=== PATIENT | male | born 1950 | race Caucasian/White ===

== ENCOUNTER 2021-10-03 16:45 | Inpatient (IN) | payer OTHER ==
[~2021-10-03] VITALS: Ht 177.8 cm; Wt 78.0 kg
--- NOTE | ~2021-10-03 | PROC ---
[address] [address] PROCEDURE REPORT Name: SALINA MCCOY Room: [address] IN M.R.#: [id number] Admission: 10/03/21 Attend Phys: Alexandra Paiz MD Discharge: Date of : 54 Report #: [id number] THIS REPORT FOR: cc: [facility] - Clinic physician unknown FAM - Clinic physician unknown [facility],Medical Records Staff ~ For GI report, please see the Provation report in Perceptive 7 content. By: [id number] Records Staff FRANSICO /CHRISTO
--- NOTE | ~2021-10-03 | PROC ---
[facility] [address] [place] [address] PROCEDURE REPORT Name: SALINA MCCOY Room: [address] IN M.R.#: [id number] Admission: 10/03/21 Attend Phys: Alexandra Paiz MD Discharge: Date of : 54 Report #: [id number] THIS REPORT FOR: cc: [facility] - Clinic physician unknown FAM - Clinic physician unknown [facility],Medical Records Staff ~ For GI report, please see the Provation report in Perceptive 7 content. By: [id number] Records Staff FRANSICO /CHRISTO
[2021-10-03 16:53] VITALS: BP 120/51
[2021-10-03 17:30] LABS: HEMATOCRIT 27.6 % (42.0-52.0); HEMOGLOBIN 9.1 gm/dL (14.0-18.0); MCH 39.4 pg (26.0-34.0); MCV 119.6 fL (80.0-100.0); MPV 8.5 fl. (7.2-11.1); NUCLEATED RBCS 1 /100WBC; PLATELET COUNT* 200 thou/uL (150-400); RBC 2.31 mil/uL (4.50-6.00); RDW-CV 16.9 % (10.5-14.5); WBC 15.5 thou/uL (4.0-11.0)
[2021-10-03 17:38] LABS: APTT 23.9 Seconds (25.0-31.3); INR 1.1; PROTIME 11.4 Seconds (9.20-11.50)
[2021-10-03 17:51] LABS: CALCIUM 8.3 mg/dL (8.5-10.1); CREATININE 1.6 mg/dL (0.6-1.3)
[2021-10-03 17:59] LABS: ABSOLUTE EOSINOPHILS 0.2 thou/uL (0.0-0.7); ABSOLUTE LYMPHOCYTES 0.9 thou/uL (0.8-5.3); ABSOLUTE MONOCYTES 0.5 thou/uL (0.0-1.2); PLATELET ESTIMATE ADEQUATE
[2021-10-03 18:00] LABS: ANISOCYTOSIS 2+; MACROCYTES 2+
[2021-10-03 18:02] LABS: ALBUMIN 2.3 g/dL (3.4-5.0); TOTAL BILIRUBIN 1.7 mg/dL (<0.1-1.0); TOTAL PROTEIN 7.3 g/dL (6.4-8.2)
[2021-10-03 19:06] LABS: URINE BILIRUBIN NEGATIVE (Negative); URINE BLOOD NEGATIVE (Negative); URINE CLARITY CLEAR; URINE COLOR YELLOW; URINE GLUCOSE-RANDOM NEGATIVE (Negative); URINE KETONES NEGATIVE (Negative); URINE LEUKOCYTES-REFLEX NEGATIVE (Negative); URINE NITRITE-REFLEX NEGATIVE (Negative); URINE PROTEIN NEGATIVE (Negative); URINE SPECIFIC GRAVITY <= 1.005 (1.005-1.030); URINE UROBILINOGEN 0.2 E.U./dl (0.2-1.0)
[2021-10-03 22:00] VITALS: BP 119/65
[2021-10-04] VITALS (7 sets, daily range): BP systolic 115–145; BP diastolic 50–105
[2021-10-04 01:59] LABS: HEMATOCRIT 23.6 % (42.0-52.0); HEMOGLOBIN 7.8 gm/dL (14.0-18.0); MCH 39.7 pg (26.0-34.0); MCV 120.2 fL (80.0-100.0); MPV 7.9 fl. (7.2-11.1); RBC 1.96 mil/uL (4.50-6.00); RDW-CV 16.7 % (10.5-14.5); WBC 10.4 thou/uL (4.0-11.0)
[2021-10-04 02:15] LABS: CALCIUM 7.4 mg/dL (8.5-10.1); CREATININE 1.1 mg/dL (0.6-1.3); POTASSIUM 3.1 mmol/L (3.5-5.1)
[2021-10-04 02:19] LABS: ALBUMIN 1.9 g/dL (3.4-5.0); MAGNESIUM 1.7 mg/dL (1.8-2.4); TOTAL BILIRUBIN 1.3 mg/dL (<0.1-1.0); TOTAL PROTEIN 6.1 g/dL (6.4-8.2)
--- NOTE | 2021-10-04 15:20 | EKG ---
[place] [address] ELECTROCARDIOGRAM REPORT Name: MCCOY,SALINA Reji Room: [place] [address] ADM IN [facility]#: [id number] Admission: 10/03/21 Attend Phys: Alexandra Paiz, Discharge: Date of : 54 Date of Service: 10/03/21 1743 Report #: [id number] THIS REPORT FOR: //name// [facility] ED Test Date: 2021-10-03 Test Time: 17:43:45 Pat Name: SALINA MCCOY Department: Room: [facility] Gender: M Pen Ruler Operator: ALAINA : 1950 Requested By: Cheo Rm Order Number: [id number] MD: Steven Jones Measurements Intervals [place] Rate: 100 P: 67 NE: 205 QRS: 51 QRSD: 82 T: 46 QT: 353 QTc: 456 Interpretive Statements Sinus tachycardia Borderline T abnormalities, anterior leads Baseline wander in lead(s) V2 No previous ECG available for comparison Electronically Signed On 10-04-2021 15:20:36 ASSISTIVE TECHNOLOGY SPECIALIST by Steven Jones [email or web address] <ELECTRONICALLY SIGNED> By: Steven Jones MD, FACC 10/04/21 1520 1743 1743 Steven Jones MD, FAC /EPI
--- NOTE | 2021-10-04 17:54 | NUR ---
PT HAD SPILLED FOOD AND DRINK IN HIS BED, PT WAS WIPED DOWN, GIVEN FRESH BED LINENS AND GOWN. PT SITTING UP IN CLEAN BED,WATCHING TV, CALL LIGHT WITHIN REACH.
[2021-10-04 20:53] LABS: HEMATOCRIT 22.5 % (42.0-52.0); HEMOGLOBIN 7.4 gm/dL (14.0-18.0)
[2021-10-04 21:11] LABS: MAGNESIUM 2.4 mg/dL (1.8-2.4); POTASSIUM 3.4 mmol/L (3.5-5.1)
[2021-10-05] VITALS: BP 116/69
[2021-10-05] MEDS ORDERED: BENADRYL25 MG PO (01:33)
[2021-10-05 04:00] VITALS: BP 139/76
[2021-10-05 08:00] VITALS: BP 103/63
[2021-10-05 10:25] LABS: CHOLESTEROL 114 mg/dL (<200); HDL CHOLESTEROL 16 mg/dL (>40); LDL CHOLESTEROL 71 mg/dL (<100); TC:HDL 7.1 Ratio (Not establshd); TRIGLYCERIDE 136 mg/dL (<150); VLDL 27 mg/dL (<40)
[2021-10-05 10:26] LABS: SERUM ASSESSMENT Moderate Lipemia
[2021-10-05 12:00] VITALS: BP 109/84
[2021-10-05 13:58] LABS: ABSOLUTE EOSINOPHILS 0.1 thou/uL (0.0-0.7); ABSOLUTE MONOCYTES 0.5 thou/uL (0.0-1.2); ABSOLUTE NEUTROPHILS 8.3 thou/uL (1.6-8.1); BASOPHILS 0.3 %; HEMATOCRIT 24.3 % (42.0-52.0); HEMOGLOBIN 8.1 gm/dL (14.0-18.0); LYMPHOCYTES 18.2 %; MCH 40.7 pg (26.0-34.0); MCHC 33.4 g/dL (28.0-37.0); MCV 121.8 fL (80.0-100.0); MONOCYTES 4.5 %; MPV 8.8 fl. (7.2-11.1); NUCLEATED RBCS 1 /100WBC; PLATELET COUNT* 189 thou/uL (150-400); RBC 1.99 mil/uL (4.50-6.00); RDW-CV 16.7 % (10.5-14.5)
[2021-10-05 14:08] LABS: ALBUMIN 2.1 g/dL (3.4-5.0); CALCIUM 7.8 mg/dL (8.5-10.1); CREATININE 1.3 mg/dL (0.6-1.3); POTASSIUM 3.7 mmol/L (3.5-5.1); TOTAL PROTEIN 6.6 g/dL (6.4-8.2)
[2021-10-05 16:00] VITALS: BP 156/81
--- NOTE | 2021-10-05 18:59 | NUR ---
RECEIVED REPORT. ASSUMED CARE OF PT AROUND 0730. AM ASSESSMENT AND VITALS COMPLETED CHARTED. COUNTERPERSON IN PLACE. MEDS PER EMAR. ATIVAN PRN. INCONTINENT OF BOWEL AND BLADDER MULTIPLE TIMES THIS SHIFT. DRESSING TO RIGHT HIP CDI. DENIED PAIN THIS SHIFT. FALL PRECAUTIONS IN PLACE. CALL LIGHT WITHIN REACH. HOURY ROUNDING PERFORMED.
[2021-10-05 20:00] VITALS: BP 107/63
[2021-10-06] VITALS: BP 124/75
[2021-10-06 04:00] VITALS: BP 136/78
[2021-10-06 07:01] LABS: ABSOLUTE EOSINOPHILS 0.2 thou/uL (0.0-0.7); ABSOLUTE LYMPHOCYTES 2.9 thou/uL (0.8-5.3); ABSOLUTE MONOCYTES 0.9 thou/uL (0.0-1.2); ABSOLUTE NEUTROPHILS 8.7 thou/uL (1.6-8.1); BASOPHILS 0.1 %; EOSINOPHILS 1.3 %; HEMATOCRIT 23.6 % (42.0-52.0); HEMOGLOBIN 7.7 gm/dL (14.0-18.0); LYMPHOCYTES 22.6 %; MCH 39.1 pg (26.0-34.0); MCHC 32.7 g/dL (28.0-37.0); MCV 119.4 fL (80.0-100.0); MONOCYTES 7.4 %; MPV 7.9 fl. (7.2-11.1); NUCLEATED RBCS 1 /100WBC; PLATELET COUNT* 151 thou/uL (150-400); POLYS 68.6 %; RBC 1.97 mil/uL (4.50-6.00); RDW-CV 16.8 % (10.5-14.5); WBC 12.7 thou/uL (4.0-11.0)
[2021-10-06 07:16] LABS: PREALBUMIN 12.8 mg/dL (18.0-35.7)
[2021-10-06 07:18] LABS: CALCIUM 7.9 mg/dL (8.5-10.1); CREATININE 1.1 mg/dL (0.6-1.3); POTASSIUM 3.8 mmol/L (3.5-5.1); TOTAL BILIRUBIN 0.9 mg/dL (<0.1-1.0); TOTAL PROTEIN 6.2 g/dL (6.4-8.2)
[2021-10-06 09:40] VITALS: BP 130/82
--- NOTE | 2021-10-06 14:17 | NUR ---
CM ASSESSMENT: PT A&O, AND NORMALLY INDEPENDENT WITH ADL'S. PT RESIDES AT HOME ALONE. PT USES WALKER AND HOVER-ROUND FOR MOBILITY. PT HAS 0 HX OF HH OR SNF. PT INFORMS THAT HIS NEIGHBORS ASSIST HIM NEEDED. PT ADMITTED FOR ETOH ABUSE. CM DISCUSSED THIS WITH THE PT AND OFFERED PT RESOURCES. PT DECLINED. CM ALSO DISCUSSED SNF PLACEMENT WITH THE PT PT DECLINED DESPITE EDUCATION AND ENCOURAGEMENT. PT MAY BENEFIT FROM HH AT D/C. CM WILL REMAIN AVAILABLE TO ASSIST AND FOLLOW NEEDED.
--- NOTE | 2021-10-06 16:08 | CON ---
[address] [address] CONSULTATION Name: SALINA MCCOY Room: [address] IN M.R.#: [id number] Admission: 10/03/21 Attend Phys: Alexandra Paiz MD Discharge: Date of : 54 Report #: [id number] THIS REPORT FOR: cc: [facility] - Clinic physician unknown [facility] - Clinic physician unknown Ramone Mcclain DO ~ DATE OF CONSULTATION: 10/06/2021 The patient does not have a PCP. Please note at the time of this dictation, the patient was seen and physically examined by myself. REASON FOR CONSULTATION: Melanotic stool and acute anemia. HISTORY OF PRESENT ILLNESS: This 71-year-old male who presented to the Emergency Room after apparently Police were called to look on him to see what was going on regarding the situation. Apparently, when they arrived at his home, they found him that he had fallen. He was feeling very weak and unable to move. At that time, the patient denied any fever or chills. He said he had fell onto his back and he does not remember if he passed out or not. He states for the last 2 months, he has been noticing black stools. He does take an occasional ibuprofen, but nothing on a regular basis. This is more for just generalized aches and pains. He also described that he had some nausea and vomiting, but denied any bright red blood or any coffee-ground emesis noted with this. He does state his bowels move daily, soft and formed. He denies any abdominal discomfort at this time. He does have chronic back pain however. The patient has never had an EGD or a colonoscopy done before. He denies any upper gastrointestinal symptoms at this time of any difficulty swallowing or acid reflux. PAST MEDICAL HISTORY: Chronic back pain. PAST SURGICAL HISTORY: None. FAMILY HISTORY: Noncontributory. SOCIAL HISTORY: He lives alone. He drinks a 6-pack daily and he smokes a pack and half daily. REVIEW OF SYSTEMS: Twelve-point review of systems is essentially negative except what is mentioned in the HPI. PHYSICAL EXAMINATION: VITAL SIGNS: Temperature 36.3, pulse 98, respirations are 20, blood pressure 136/78. HEART: [place] [address] CONSULTATION Name: SALINA MCCOY Room: [address] IN [facility]#: [id number] Admission: 10/03/21 Attend Phys: Alexandra Paiz MD Discharge: Date of : 54 Report #: [id number] LUNGS: Diminished. ABDOMEN: Soft, positive bowel sounds in all 4 quadrants with no masses or tenderness noted. LABORATORY DATA: On admission, he was 8.1, he is now 7.7. Platelets are 151. White count is 12.7. His BUN on admission was 24, he is now 18. His GFR is 66, total bilirubin 0.9, alkaline phosphatase 209, ALT 29, AST is 72. CRP is 28.4. ESR is 94. CT scan of the abdomen, hepatic steatosis. IMPRESSION: 1. Acute anemia, likely on chronic. 2. Melanotic stool. 3. Elevated liver function test. 4. Hepatic steatosis. 5. Leukocytosis. 6. Alcohol abuse, 6-pack daily. PLAN: 1. EGD today. 2. Continue Protonix b.i.d. 3. We will check GGTP, acute hepatitis panel, an AFP 4. Ultrasound with Dopplers to further evaluate his liver. 5. Further recommendations to be made after Dr. Mcclain sees the patient and performs an EGD. Thank you for allowing us to participate in this patient's care. Please do not hesitate to call with any questions regarding this consult. <ELECTRONICALLY SIGNED> By: Ramone Mcclain DO 10/06/21 1608 0842 [id number] Mcclain DO /nt
[2021-10-06 16:48] VITALS: BP 121/79
--- NOTE | 2021-10-06 17:02 | 2DMMODE ---
[place] [address] 2 D/M-MODE ECHOCARDIOGRAM Name: SALINA MCCOY Room: [address] IN Daniela.#: [id number] Admission: 10/03/21 Attend Phys: Alexandra Paiz, Discharge: Date of : 54 Date of Service: 10/06/21 1702 Report #: [id number] THIS REPORT FOR: cc: [facility] - Clinic physician unknown [facility] - Clinic physician unknown Ross Anaya MD [facility] ~ APPROVED REPORT Study performed: 10/06/2021 14:02:30 EXAM: Comprehensive 2D, Doppler, and color-flow Echocardiogram Patient Location: In-Patient Room #: [facility] Status: routine BSA: 2.00 HR: 89 bpm BP: 136/78 mmHg Rhythm: NSR Other Information Study Quality: Adequate Indications Congestive Heart Failure 2D Dimensions IVSd: 8.50 (7-11mm) LVOT Diam: 20.12 (18-24mm) LVDd: 43.40 mm PWd: 9.67 (7-11mm) Ascending Ao: 32.57 (22-36mm) LVDs: 27.21 (25-40mm) Aortic Root: 32.66 mm Volumes Left Atrial Volume (Systole) LA ESV Index: 17.10 mL/m2 Aortic Valve AoV Peak Suraj.: 1.01 m/s AO Peak Gr.: 4.12 mmHg LVOT Max P.55 mmHg AO Mean Gr.: 2.45 mmHg LVOT Mean P.91 mmHg LVOT Max V: 0.94 m/s AO V2 VTI: 20.46 cm LVOT Mean V: 0.64 m/s GUERA (VTI): 3.44 cm2 LVOT V1 VTI: 22.10 [place] [address] 2 D/M-MODE ECHOCARDIOGRAM Name: SALINA MCCOY Room: [address] IN ..#: [id number] Admission: 10/03/21 Attend Phys: Alexandra Paiz, Discharge: Date of : 54 Date of Service: 10/06/21 1702 Report #: [id number] Mitral Valve E/A Ratio: 0.75 MV Decel. Time: 129.63 ms MV E Max Suraj.: 0.69 m/s MV PHT: 37.59 ms MVA (PHT): 5.85 cm2 TDI E/Lateral E': 6.90 E/Medial E': 9.86 Medial E' Suraj.: 0.07 m/s Lateral E' Suraj.: 0.10 m/s Pulmonary Valve PV Peak Suraj.: 0.80 m/s PV Peak Gr.: 2.55 mmHg Left Ventricle The left ventricle is normal size. There is normal LV segmental wall motion. There is normal left ventricular wall thickness. Left ventricular systolic function is normal. The left ventricular ejection fraction is within the normal range. LVEF is 65-70%. Grade I - abnormal relaxation pattern. Right Ventricle The right ventricle is normal size. The right ventricular systolic function is normal. Atria The left atrium size is normal. The right atrium size is normal. Aortic Valve The aortic valve is normal in structure. No aortic regurgitation is present. There is no aortic valvular stenosis. Mitral Valve The mitral valve is normal in structure. There is no mitral valve regurgitation noted. No evidence of mitral valve stenosis. Tricuspid Valve The tricuspid valve is normal in structure. There is no tricuspid valve regurgitation noted. Pulmonic Valve Pulmonic valve is not well visualized. There is no [place]mon[place] [address] 2 D/M-MODE ECHOCARDIOGRAM Name: SALINA MCCOY Room: [address]#: [id number] Admission: 10/03/21 Attend Phys: Alexandra Paiz, Discharge: Date of : 54 Date of Service: 10/06/21 1702 Report #: [id number] Great Vessels The aortic root is normal in size. IVC is not well visualized. Pericardium There is no pericardial effusion. <Conclusion> Left ventricular systolic function is normal. The left ventricular ejection fraction is within the normal range. <ELECTRONICALLY SIGNED> By: Ross Anaya MD, FACC 10/06/211701 01 01 Ross Anaya MD, FAC /INF
[2021-10-06 20:00] VITALS: BP 93/54
[2021-10-07] VITALS (7 sets, daily range): BP systolic 93–157; BP diastolic 61–96
[2021-10-07 04:29] LABS: HEMATOCRIT 21.2 % (42.0-52.0); MCH 39.2 pg (26.0-34.0); MCHC 32.1 g/dL (28.0-37.0); MCV 122.1 fL (80.0-100.0); NUCLEATED RBCS 0 /100WBC; PLATELET COUNT* 134 thou/uL (150-400); RBC 1.74 mil/uL (4.50-6.00); WBC 12.1 thou/uL (4.0-11.0)
[2021-10-07 05:08] LABS: ALBUMIN 1.8 g/dL (3.4-5.0); CREATININE 0.9 mg/dL (0.6-1.3); POTASSIUM 3.4 mmol/L (3.5-5.1); TOTAL BILIRUBIN 0.8 mg/dL (<0.1-1.0); TOTAL PROTEIN 5.7 g/dL (6.4-8.2)
[2021-10-07 05:09] LABS: HEMOGLOBIN 6.8 gm/dL (14.0-18.0)
[2021-10-07 06:40] LABS: ABSOLUTE LYMPHOCYTES 2.5 thou/uL (0.8-5.3); ABSOLUTE MONOCYTES 1.1 thou/uL (0.0-1.2); ABSOLUTE NEUTROPHILS 8.5 thou/uL (1.6-8.1); PROMYELOCYTES 2 %
[2021-10-07 06:42] LABS: ANISOCYTOSIS 2+
[2021-10-07 06:43] LABS: HYPOCHROMASIA 2+
[2021-10-07 06:44] LABS: POLYCHROMASIA 1+
[2021-10-07 06:47] LABS: PLATELET ESTIMATE ADEQUATE
--- NOTE | 2021-10-07 07:11 | NUR ---
CALL FROM BLOOD BANK, BLOOD SOPHIE. REPORT GIVEN TO YEISON ELAM. BLOOD ADMINISTRATION ENDORSED. BLOOD CONSENT SIGNED.
[2021-10-07 09:08] LABS: HEPATITIS B SURFACE AG Negative (Negative)
[2021-10-07 12:07] LABS: GLOBULIN TOTAL 3.2 g/dL (2.2-3.9); M-SPIKE 0.6 g/dL (Not Observed)
--- NOTE | 2021-10-07 16:13 | NUR ---
PLAN OF CARE: PHYSICIAN INFORMS THAT THE PT IS NOT MEDICALLY STABLE AT THIS TIME. GI CONSULTED. MRI PENDING. PT MAY BENEFIT FROM HH AT D/C. PT/OT EVALS WILL BE NEEDED TO DETERMINE CM D/C PLANNING NEEDS FOR D/C TO SNF VS HOME WITH HH. CM WILL REMAIN AVAILABLE TO ASSIST AND FOLLOW NEEDED.
--- NOTE | 2021-10-07 18:43 | NUR ---
ASSUMED CARE AT 0730. PT IS ALERT ANAD ORIENTED. ASSESSMENT DONE. PT IS INCONTINENT OF BLADDER. PT IS PREPING FOR COLONOSCOPY IN THE AM. WILL CONTINUE TO CARE FOR PT.
[2021-10-08 01:03] VITALS: BP 116/82
[2021-10-08 04:43] LABS: CALCIUM 8.2 mg/dL (8.5-10.1)
[2021-10-08 04:49] LABS: POTASSIUM 2.9 mmol/L (3.5-5.1)
[2021-10-08 05:04] LABS: HEMATOCRIT 26.2 % (42.0-52.0); HEMOGLOBIN 8.5 gm/dL (14.0-18.0); MCH 35.8 pg (26.0-34.0); MCHC 32.5 g/dL (28.0-37.0); MPV 8.2 fl. (7.2-11.1); NUCLEATED RBCS 1 /100WBC; PLATELET COUNT* 148 thou/uL (150-400); RBC 2.38 mil/uL (4.50-6.00); RDW-CV 28.7 % (10.5-14.5); WBC 11.2 thou/uL (4.0-11.0)
[2021-10-08 05:10] LABS: MCV 110.3 fL (80.0-100.0)
[2021-10-08 05:25] VITALS: BP 133/77
--- NOTE | 2021-10-08 05:44 | NUR ---
PT ALERT BUT SLEPT ALL SHIFT. K+ WAS 2.9 THIS MORNING, IV K+ STARTED PER PROTOCOL. HE IS Q2 TURN, INCONTINENT OF URINE. HAS BEEN NPO SINCE MIDNIGHT. RECEIVED DULCOLAX THIS MORNING WITH WATER PER DR JIMENEZ ORDERS FOR COLONOSCOPY LATER TODAY. WILL CONTINUE TO MONITOR.
[2021-10-08 06:39] LABS: ABSOLUTE EOSINOPHILS 0.1 thou/uL (0.0-0.7); ABSOLUTE LYMPHOCYTES 2.2 thou/uL (0.8-5.3); ABSOLUTE MONOCYTES 0.8 thou/uL (0.0-1.2); ABSOLUTE NEUTROPHILS 8.1 thou/uL (1.6-8.1); METAMYELOCYTES 8 %
[2021-10-08 06:42] LABS: ANISOCYTOSIS 2+; PLATELET ESTIMATE ADEQUATE; POIKILOCYTOSIS 1+
[2021-10-08 08:00] VITALS: BP 111/64
[2021-10-08 16:00] VITALS: BP 149/65
[2021-10-08 20:20] VITALS: BP 139/61
[2021-10-09 01:04] VITALS: BP 154/78
[2021-10-09 04:00] VITALS: BP 160/71
--- NOTE | 2021-10-09 06:59 | NUR ---
Oriented x 3 but forgetful. He is SR to ST with 1 degree on the monitor. Hehas used the urinal to void. viatls stable. He has slept well.
[2021-10-09 09:00] VITALS: BP 115/92; BP 93/65
--- NOTE | 2021-10-09 11:08 | PATH ---
[facility] [address] [place] [address] PATHOLOGY RPT PROCEDURE Name: SALINA HENDRIX Room: [address] IN M.R.#: [id number] Admission: 10/03/21 Date of : 54 Discharge: Report #: [id number] Path Case #: [id number] LCA Accession Number: [id number] . 01 Material submitted: . stomach - ANTRAL BIOPSY FOR H. PYLORI . 01 Clinical history: . EGD IN OR . 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 . (ANTHONY:archie; 10/08/2021) [facility] 10/08/2021 1606 Local . 02 Comment: Special stain: H. pylori immuno . (ANTHONY:archie; 10/08/2021) . 02 Electronically signed: . Juan Davidson MD, Pathologist NPI- [id number] . 01 Gross description: . The specimen is received in formalin, labeled "Salina Hendrix, antral biopsy". Received is a segment of pale ashton tissue measuring 0.4 cm in maximum dimensions. The specimen is submitted entirely in cassette A1. (CAA; 10/07/2021) QA/[facility] 10/07/2021 0918 Local . 02 Pathologist provided ICD-10: K29.50 . 02 CPT . 985298, [id number] Specimen Comment: A courtesy copy of this report has been sent to [phone] Specimen Comment: [id number] Specimen Comment: Report sent to / DR JIMENEZ Specimen Comment: A duplicate report has been generated due to demographic updates. Performed at: [address] [id number] [address] [address] PATHOLOGY RPT PROCEDURE Name: SALINA HENDRIX Room: [address] IN [facility]#: [id number] Admission: 10/03/21 Date of : 54 Discharge: Report #: [id number] Path Case #: [id number] MD Clive Noriega MD Phone: [phone] Performed at: [address] [id number] MD Juan Davidson MD Phone: [phone]
[2021-10-09 12:54] VITALS: BP 142/88
[2021-10-09 18:18] VITALS: BP 140/98
[2021-10-09 20:13] VITALS: BP 142/85
[2021-10-10 00:41] VITALS: BP 128/68
[2021-10-10 04:13] VITALS: BP 129/75
--- NOTE | 2021-10-10 04:33 | NUR ---
PATIENT HAS REMAINED ALERT AND ORIENTED X 4 WITH SLIGHT FORGETFULNESS. RESTING QUIETLY ON HOURLY ROUNDS. TURNED Q2H WITH ASSIST. INCONT SMALL TO MOD BM AT HS AND UP TO BSC WITH GAIT BELT, WALKER AND MIN/MOD ASSIST OF 2 WITH ANOTHER MOD BM. BOTH STOOLS VERY DARK IN COLOR; NEARLY BLACK. VITAL SIGNS STABLE ON ROOM AIR. MEDS/ANTIBIOTICS PER ORDER. FALL PRECAUTIONS IN PLACE. CONTINUE TO MONITOR.
[2021-10-10 08:00] VITALS: BP 154/76
--- NOTE | 2021-10-10 10:15 | CON ---
[address] [address] CONSULTATION Name: SALINA MCCOY Room: [address] IN M.R.#: [id number] Admission: 10/03/21 Attend Phys: Alexandra Paiz MD Discharge: Date of : 54 Report #: [id number] THIS REPORT FOR: cc: [facility] - Clinic physician unknown [facility] - Clinic physician unknown Tracy Alvarenga DO ~ DATE OF CONSULTATION: 10/04/2021 NEUROLOGY CONSULT HISTORY OF PRESENT ILLNESS: The patient is a 71-year-old male who tells me that he fell to the ground, 2 or 3 times. He states that he did not lose consciousness as he was falling, but felt that his legs were weak. The police were called and the patient does admit to alcohol use. He admitted to a 6-pack of beer a day. He told me that he did not pass out or lose consciousness, but when he spoke to Dr. Armendariz, it states in the note that he fell onto his back and does not remember if he passed out. The patient admits to having tingling in the extremities. He has this in the lower extremities and in his hands and he states that he has only had this tingling for 2 weeks. He also smokes. He has pain in his hips. He also has pain in his legs. The patient was evaluated in the emergency room. He has had a chest x-ray, pelvis x-ray, abdomen and pelvis CT, cervical spine CT, chest CT and head CT. PAST MEDICAL HISTORY: Cigarette abuse, alcohol abuse, chronic back pain. PAST SURGICAL HISTORY: Unremarkable. MEDICATIONS: None. ALLERGIES: None. VITAL SIGNS: Temperature 36.3, pulse rate 98, respiratory rate 19, blood pressure 119/57, bedside pulse oximetry 94% on 2 liters. LABORATORY DATA: White blood cell count 10.4, hemoglobin 7.8, hematocrit 23.6, MCV 120.2, platelet count 137,000. Coagulation: INR 1.1. Urinalysis negative. Chemistry: Sodium 134, potassium 3.1, chloride 99, carbon dioxide 25, BUN 27, creatinine 1.1, GFR 66, glucose 87. Lactic acid 1.7, calcium 7.4, magnesium 1.7. Iron 118, TIBC 98. Iron saturation 120%, ferritin 628, total bilirubin 1.3, AST 50, ALT 20, alkaline phosphatase 195. Creatinine kinase 77. Troponin 17. BNP 1773. Total protein 6.1, albumin 1.9, prealbumin 11.4. B12 of 452. Folate 1. TSH 1.845. Serology: COVID negative. IMAGING: CT scan of the head demonstrates [place] [address] CONSULTATION Name: SALINA MCCOY Room: [address] IN [facility]#: [id number] Admission: 10/03/21 Attend Phys: Alexandra Paiz MD Discharge: Date of : 54 Report #: [id number] scan of the chest shows multiple healed rib fractures on the right and left, atherosclerotic changes present in the coronary arteries, basilar atelectasis present on the right. CT of the cervical spine demonstrates spondylosis and uncovertebral joint degenerative change, causing mlvb-qv-tfkbxugx foraminal stenosis from C3-C4 through C5-C6. No acute fracture or subluxation is seen. CT of the abdomen and pelvis shows a left inguinal hernia, rib fractures of the right and left hepatic steatosis with moderate atherosclerotic changes, most prominent in the lower aorta, which is felt to cause moderately high-grade stenosis of the distal aorta. Pelvis x-ray shows bilateral femoral acetabular impingement. Chest x-ray shows mild interstitial opacities in the right middle lobe and lingula representing either pneumonitis or subsegmental atelectasis and multiple old healed bilateral rib fractures. NEUROLOGIC: Cranial nerves II-XII are grossly intact. Motor exam demonstrates the patient is able to lift his arms above his head. He is able to lift each leg off the bed to at least a 45-degree angle. Reflexes are absent throughout. Plantar responses are flexor. Coordination revealed dysmetria with iekhet-ez-rryr and ijpb-wk-yqrl. The patient has diminished light touch in a stocking glove fashion to just above the calves. Proprioception is greatly diminished. IMPRESSION AND PLAN: My understanding from the patient was that he did not lose consciousness. Otherwise, I realized he gave Dr. Armendariz a different history. What I would recommend is an MRI of the head on Wednesday to look for cerebellar atrophy. The patient has dysmetria in the upper and lower extremities. 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 I will also check a serum protein electrophoresis to complete the workup. He does need an EMG, but this is only done as an outpatient. An MRI of the thoracic spine will also be ordered, but this can be done on Wednesday. I thank you for your kind referral of the patient and will continue to follow him with you. <ELECTRONICALLY SIGNED> By: Tracy Alvarenga DO 10/10/21 1015 1218 [id number] SCorina Alvarenga, /nt
--- NOTE | 2021-10-10 10:22 | NUR ---
PLAN OF CARE: INITIAL PLAN FOR THE PT TO D/C TO SNF WHEN MEDICALLY STABLE. HOWEVER PT DECLINED SNF AND PLANS TO D/C HOME WITH HH DESPITE EDUCATION AND ENCOURAGEMENT. PT'S FRIEND INFORMS OF PLAN TO ASSIST HIM AT HOME AT D/C. PT'S FRIEND LEW FITCH PROVIDES CONTACT INFO TO RN AND INFORMS OF PLANS TO ASSIST PT AT HOME AT D/C. CM WILL REMAIN AVAILABLE TO ASSIST AND FOLLOW NEEDED.
[2021-10-10 14:11] VITALS: BP 109/58
[2021-10-10 20:38] VITALS: BP 148/78
[2021-10-11 04:06] LABS: HEMOGLOBIN 8.3 gm/dL (14.0-18.0); MCH 36.1 pg (26.0-34.0); MCHC 32.1 g/dL (28.0-37.0); MCV 112.4 fL (80.0-100.0); MPV 8.3 fl. (7.2-11.1); RBC 2.31 mil/uL (4.50-6.00); RDW-CV 24.7 % (10.5-14.5); WBC 12.6 thou/uL (4.0-11.0)
--- NOTE | 2021-10-11 04:07 | NUR ---
PT TRANSFERRED AT 2029 FROM TELE. A&O X 3-4, FORGETFUL AT TIMES. VSS ON RA. TYLENOL GIVEN FOR PAIN. PT INCONTINENT, BARRIER CREAM APPLIED FOR REDNESS. CALL LIGHT WITHIN REACH. WILL CONTINUE TO MONITOR.
[2021-10-11 04:32] LABS: CALCIUM 8.3 mg/dL (8.5-10.1); POTASSIUM 4.5 mmol/L (3.5-5.1)
[2021-10-11 08:15] VITALS: BP 142/81
[2021-10-11 15:55] VITALS: BP 139/83
[2021-10-11 21:00] VITALS: BP 139/69
[2021-10-12 09:00] VITALS: BP 147/80
[2021-10-12 16:00] VITALS: BP 152/65
[2021-10-12 20:30] VITALS: BP 152/70
[2021-10-13 04:52] LABS: ALBUMIN 1.5 g/dL (3.4-5.0); CALCIUM 8.2 mg/dL (8.5-10.1); CREATININE 1.1 mg/dL (0.6-1.3); MAGNESIUM 2.1 mg/dL (1.8-2.4); POTASSIUM 4.2 mmol/L (3.5-5.1); TOTAL BILIRUBIN 0.5 mg/dL (<0.1-1.0); TOTAL PROTEIN 5.9 g/dL (6.4-8.2)
[2021-10-13 04:56] VITALS: BP 152/68
[2021-10-13 04:57] LABS: HEMATOCRIT 26.2 % (42.0-52.0); HEMOGLOBIN 8.1 gm/dL (14.0-18.0); MCH 34.6 pg (26.0-34.0); MCHC 30.8 g/dL (28.0-37.0); MCV 112.2 fL (80.0-100.0); MPV 8.7 fl. (7.2-11.1); RBC 2.34 mil/uL (4.50-6.00); RDW-CV 23.3 % (10.5-14.5); WBC 15.7 thou/uL (4.0-11.0)
--- NOTE | 2021-10-13 06:11 | NUR ---
PATIENT SLEPT MOST OF THE NIGHT. IV ANTIBIOTIC WAS GIVEN ORDERED. PATIENT HAD NO COMPLAINTS OF PAIN. PATIENT COULD POSSIBLY DC TO REHAB FACILTY TODAY. WILL CONTINUE TO MONITOR.
[2021-10-13 08:15] VITALS: BP 144/75
[2021-10-13 16:00] VITALS: BP 121/72
--- NOTE | 2021-10-13 17:29 | NUR ---
CM FOLLOWUP CM SPOKE WITH [facility] ([phone]) ADMISSIONS. PT PENDING AUTH WITH [facility]. CM TO FOLLOWUP.
[2021-10-13 20:20] VITALS: BP 146/71
[2021-10-14 04:23] LABS: HEMATOCRIT 25.1 % (42.0-52.0); HEMOGLOBIN 7.9 gm/dL (14.0-18.0); MCH 35.2 pg (26.0-34.0); MCHC 31.4 g/dL (28.0-37.0); MCV 112.2 fL (80.0-100.0); MPV 8.7 fl. (7.2-11.1); RBC 2.24 mil/uL (4.50-6.00); WBC 16.3 thou/uL (4.0-11.0)
[2021-10-14 04:30] LABS: ALBUMIN 1.5 g/dL (3.4-5.0); CALCIUM 8.5 mg/dL (8.5-10.1); CREATININE 0.9 mg/dL (0.6-1.3); MAGNESIUM 2.1 mg/dL (1.8-2.4); POTASSIUM 4.3 mmol/L (3.5-5.1); TOTAL BILIRUBIN 0.7 mg/dL (<0.1-1.0); TOTAL PROTEIN 6.1 g/dL (6.4-8.2)
--- NOTE | 2021-10-14 05:23 | NUR ---
PT AO BUT FORGETFUL AT TIMES OVERNIGHT. SETTING OFF BED ALARM ONCE THIS SHIFT TRYING TO GET OOB. ROM AIR SAT 98%. PT TURNED AND REPOSITIONED Q2 HOURS AND PRN FOR SKIN CARE AND COMFORT. ANASTASIIA IV SL. AM LABS. UP WITH ASSIST TO BSC, SOME INCONTINENCE OVERNIGHT, BAN CARE GIVEN. CM FOLLOWING FOR DC PLAN, INS AUTH PENDING FOR REHAB DC [facility]. CALL LITE IN EASY REACH, BED ALARM ON FOR SAFETY.
[2021-10-14 08:41] VITALS: BP 148/78
[2021-10-14 16:31] VITALS: BP 129/57
--- NOTE | 2021-10-14 17:11 | NUR ---
CM FOLLOWUP PT NOT YET MED CLEAR BUT EXPECTED TO BE ON 10/15/21. PT AUTH FOR REHAB DENIED BY INSURANCE. PT NOW OPEN TO SKILLED SERVICES AND REFERRAL FAXED TO [facility] ([phone]). CM TO FOLLOW.
[2021-10-14 17:58] LABS: URINE BILIRUBIN NEGATIVE (Negative); URINE BLOOD NEGATIVE (Negative); URINE CLARITY CLEAR; URINE COLOR DARK YELLOW; URINE GLUCOSE-RANDOM NEGATIVE (Negative); URINE KETONES TRACE (Negative); URINE LEUKOCYTES-REFLEX NEGATIVE (Negative); URINE NITRITE-REFLEX NEGATIVE (Negative); URINE PROTEIN NEGATIVE (Negative); URINE SPECIFIC GRAVITY 1.015 (1.005-1.030)
[2021-10-14 21:30] VITALS: BP 130/56
[2021-10-15 04:12] LABS: ALBUMIN 1.6 g/dL (3.4-5.0); CALCIUM 8.3 mg/dL (8.5-10.1); CREATININE 0.9 mg/dL (0.6-1.3); POTASSIUM 4.7 mmol/L (3.5-5.1); TOTAL BILIRUBIN 0.7 mg/dL (<0.1-1.0); TOTAL PROTEIN 6.4 g/dL (6.4-8.2)
[2021-10-15 04:34] LABS: HEMATOCRIT 24.4 % (42.0-52.0); MCH 34.6 pg (26.0-34.0); MCHC 31.3 g/dL (28.0-37.0); MCV 110.5 fL (80.0-100.0); MPV 8.8 fl. (7.2-11.1); RBC 2.2 mil/uL (4.50-6.00); RDW-CV 22.9 % (10.5-14.5); WBC 15.8 thou/uL (4.0-11.0)
[2021-10-15 04:40] LABS: HEMOGLOBIN 7.6 gm/dL (14.0-18.0)
[2021-10-15 08:00] VITALS: BP 130/56
--- NOTE | 2021-10-15 08:54 | NUR ---
FRANCES from [facility]/CHASIDY [phone] Acute Rehab denied, skilled level more appropriate. Notified CM RB/JESSICA and Dr BOWMAN
[2021-10-15] MEDS ORDERED: PROTONIX40 M2 PO (09:18)
[2021-10-15] MEDS ORDERED: ENBRACE HR SOF1 EACH PO (09:18)
[2021-10-15] MEDS ORDERED: LIDODERM1 EACH TOP (09:18)
[2021-10-15 16:07] VITALS: BP 149/88
--- NOTE | 2021-10-15 16:58 | NUR ---
CM FOLLOWUP PT MED CLEAR. ON 10/14/21, PT WAS PENDING AUTH FOR ACUTE REHAB. ON 10/14/21, PT'S [facility] INSURANCE CONTACTED [facility] TO RELAY THAT THE AUTH WAS DECLINED AND PT WAS MORE APPROPRITE FOR SKILLED SERVICES. PT WAS THEN REFERRED FOR SKILLED WITH [facility]. ON 10/15/21, [facility] ACCEPTED PT TO FACILITY AND ATTEMPTED TO OBTAIN AUTH, BUT WAS TOLD [facility] WOULD NEED TO SUBMIT FOR AUTH. CM CONTACTED THE [facility] AND SPOKE WITH EVI ([phone]) AND NISHANT ([phone]) WHO REPORTED PT'S VA INSURANCE WOULD NOT COVER SKIILLED SERVICES. CM RELAYED THAT PT WAS ALREADY DENIED ARU AND A VA INSURANCE UNDERWRITER (DAVID) STATED PT WAS MORE APPROPRITE FOR SKILLED SERVICES. CM WAS TOLD THAT THE VA DID STATE PT WAS MORE APPROPRITE FOR SKILLED SERVICES, BUT THAT THE VA DID NOT STATE THEY WOULD PAY FOR THE SKILLED SERVICES. VA STAFF INDICATED PT IS ELIGIBLE FOR MEDICARE AND ADVISED THAT HE OBTAIN MEDICARE COVERAGE. CM TO FOLLOWUP.
--- NOTE | 2021-10-15 17:02 | NUR ---
PATIENT RESTING IN BED. LEFT UPPER MIDLINE, SALINE LOCKED, PATENT. EDEMA TO RIGHT HAND. NO C/O PAIN/DISCOMFORT. ALL QUESTIONS AND CONCERNS ADDRESSED.
--- NOTE | 2021-10-16 09:56 | CON ---
[address] [address] CONSULTATION Name: SALINA MCCOY Room: [address] IN .R.#: [id number] Admission: 10/03/21 Attend Phys: Alexandra Paiz MD Discharge: Date of : 54 Report #: [id number] THIS REPORT FOR: cc: [facility] - Clinic physician unknown [facility] - Clinic physician unknown Thuan Devlin II DO ~ DATE OF CONSULTATION: 10/14/2021 ORTHOPEDIC CONSULTATION CHIEF COMPLAINT: Right hip pain. HISTORY OF PRESENT ILLNESS: The patient is a 71-year-old gentleman who presented to the hospital after being found at home unable to move. Apparently, he had a fall, was feeling very weak. Police were called in the situation. The patient only drinks beers about 6-pack per day. Denies any fevers or chills. Does have pain throughout his back as well as lower extremities; however, we are consulted for the right hip, which does show pain within the anterior thigh. He does have full range of motion with flexion and extension of the knee and ankle also have range of motion. The patient states the pain is worse with standing; however, he is able to ambulate with a walker. Pain lasts for hours a day. It decreases with current pain medication as well as lidocaine patch and is a dull ache within the groin and thigh. We are consulted for further evaluation. PAST MEDICAL HISTORY: Chronic back pain, renal failure, alcohol abuse. ALLERGIES: No known. FAMILY HISTORY: Reviewed and noncontributory. SOCIAL HISTORY: The patient denies any tobacco or illicit drugs. Does drink alcohol. REVIEW OF SYSTEMS: A 12-system review of systems was reviewed with pertinent positives in the HPI. PHYSICAL EXAMINATION: GENERAL: The patient is a pleasant 71-year-old male, in minimal distress. HEENT: Head: Normocephalic, atraumatic. Eyes: Pupils equal, round, reactive to light and accommodation. Nose: Clear, without ulcerations. Normal turbinates. Mouth: Moist mucous membranes. Tongue midline. NECK: Supple, no JVD, no bruit. CARDIOVASCULAR: Regular rate and rhythm. Heart sounds present. Capillary refill normal. LUNGS: Clear to auscultation bilaterally. No [place] [address] CONSULTATION Name: SALINA MCCOY Room: [address]#: [id number] Admission: 10/03/21 Attend Phys: Alexandra Paiz MD Discharge: Date of : 54 Report #: [id number] ABDOMEN: Soft, bowel sounds present, no masses. EXTREMITIES: No clubbing or cyanosis. Does have mild pain in the right anterior thigh. Negative log roll. The patient does have flexion, extension of the hip without significant pain. Cap refill is present to the lower extremities. The patient does have knee and ankle range of motion. He is able to ambulate with my exam. SKIN: Normal color. No masses, no nodules. PSYCHIATRIC: Appropriate mood and affect. NEUROLOGIC: The patient is alert and conversational and moving all extremities. IMAGING: X-ray of the pelvis yields bilateral femoral acetabular impingement. No bony abnormalities noted. Chest x-ray shows mild interstitial opacities in the right middle lobe. A CT of the cervical spine shows spondylosis with degenerative changes at the C3-4 through C5-6. No acute changes. ASSESSMENT: Right hip and thigh strain, possible contusion from fall, weakness, alcohol abuse, renal failure. PLAN: At this time, the patient is getting some improvement with his lidocaine patches. He is also getting improvement with walking and ambulation. Would recommend continuation of physical therapy as well as lidocaine patches, ice to the thigh as needed for pain. Continue to monitor for any change in symptoms; however, I would like see him back in 1-2 weeks in the outpatient clinic. I appreciate this consultation. <ELECTRONICALLY SIGNED> By: Thuan Devlin II, DO 10/16/21 [id number] Devlin II, DO /nt
[2021-10-16 17:20] VITALS: BP 149/88
[2021-10-16 17:43] VITALS: BP 149/88
[2021-10-16 18:19] VITALS: BP 149/88
--- NOTE | 2021-10-16 18:19 | NUR ---
PATIENT DISCHARGED AT THIS TIME VIA WHEELCHAIR ACCOMPANIED BY TRANSPORTER TO TRANSPORT VEHICLE. DISCHARGE INSTRUCTIONS REVIEWED, ACKNOWLEDGED UNDERSTANDING.
--- NOTE | 2021-10-16 18:55 | NUR ---
CM FOLLOWUP PT MED CLEAR. PT DC HOME WITH HH VIA [facility] [phone]. PT TRANSPORTED HOME VIA [facility] [phone]. PT'S FRIEND (LEW - [phone]) TO PROVIDE PT IN HOME CARE.
== END 2021-10-16 18:23 | disposition home health service (06) | DRG 871 ==
LOC: M.ERS 16:45 → M.TBA-ER 18:17 → M.2W 18:17 → M.3W 10-10 19:40
PROVIDERS: Emergency Medicine; Family Medicine; Internal Medicine; Internal Medicine Gastroenterology; Nurse Practitioner Adult Health; Psychiatry & Neurology Neurology; ADMIT Internal Medicine; ATTEND Internal Medicine
PROC: 0DB68ZX Excision of Stomach, Via Natural or Artificial Opening Endoscopic, Diagnostic (ICD-10-PCS; principal; 2021-10-06)
PROC: 30233N1 Transfusion of Nonautologous Red Blood Cells into Peripheral Vein, Percutaneous Approach (ICD-10-PCS; 2021-10-07)
PROC: 0DJD8ZZ Inspection of Lower Intestinal Tract, Via Natural or Artificial Opening Endoscopic (ICD-10-PCS; 2021-10-08)
PROC: 05HC33Z Insertion of Infusion Device into Left Basilic Vein, Percutaneous Approach (ICD-10-PCS; 2021-10-08)
PROC: 5A0935A Assistance with Respiratory Ventilation, Less than 24 Consecutive Hours, High Flow/Velocity Cannula (ICD-10-PCS; 2021-10-14)
DX: A41.9 Sepsis, unspecified organism (principal); J69.0 Pneumonitis due to inhalation of food and vomit; N17.0 Acute kidney failure with tubular necrosis; K29.71 Gastritis, unspecified, with bleeding; K57.31 Diverticulosis of large intestine without perforation or abscess with bleeding; D62 Acute posthemorrhagic anemia; J44.0 Chronic obstructive pulmonary disease with (acute) lower respiratory infection; K70.9 Alcoholic liver disease, unspecified; D50.9 Iron deficiency anemia, unspecified; E87.6 Hypokalemia; F10.129 Alcohol abuse with intoxication, unspecified; G62.1 Alcoholic polyneuropathy; Z20.822 Contact with and (suspected) exposure to COVID-19; G89.29 Other chronic pain; Z71.41 Alcohol abuse counseling and surveillance of alcoholic; Z71.6 Tobacco abuse counseling; W18.39XA Other fall on same level, initial encounter; Y93.89 Activity, other specified; Y92.89 Other specified places as the place of occurrence of the external cause; Y99.8 Other external cause status; K44.9 Diaphragmatic hernia without obstruction or gangrene